=== PATIENT | male | born 1995 | race Caucasian/White ===

== ENCOUNTER 2019-08-13 20:54 | Emergency (ER) | payer SELFPAY ==
[2019-08-13 21:10] VITALS: BP 139/80
--- NOTE | 2019-08-13 21:18 | UC ---
Lower Extremity/Ankle HPI - HPI Summary HPI Summary: outside collector notes - RIGHT FOOT TODAY AT WORK FOOT SLIPPED OF A HAND CART FOOT RAIL. HEARD A SNAP. BASE OF FIRST DIGIT PAIN Pt was at work this morning, was working with a hand cart, foot slipped off the cart, with poor angle, heard a pop and felt pain in foot. Was able to ambulate to some degree (with pain), but pain not better. + swelling. No proximal pain. - History of Current Complaint Chief Complaint: UCLowerExtremity Stated Complaint: TOE INJURY Time Seen by Provider: 08/13/19 21:04 Hx Obtained From: Patient Pain Intensity: 3 - Allergies/Home Medications Allergies/Adverse Reactions: Allergies Allergy/AdvReac Type Severity Reaction Status Date / Time ibuprofen Allergy Intermediate KIDNEYS Verified 08/13/19 21:10 Home Medications: Home Medications NK [No Home Medications Reported] 08/13/19 [History Confirmed 08/13/19] PMH/Surg Hx/FS Hx/Imm Hx Previously Healthy: Yes - Surgical History Surgical History: None - Family History Known Family History: Positive: None - Social History Alcohol Use: Weekly Substance Use Type: Marijuana Smoking Status (MU): Light Every Day Tobacco Smoker Review of Systems All Other Systems Reviewed And Are Negative: Yes Constitutional: Positive: Negative Skin: Positive: Other - swelling Eyes: Positive: Negative ENT: Positive: Negative Respiratory: Positive: Negative Cardiovascular: Positive: Negative Gastrointestinal: Positive: Negative Genitourinary: Positive: Negative Motor: Positive: Other - see hpi Neurovascular: Positive: Negative Musculoskeletal: Positive: Arthralgia Neurological: Positive: Negative Psychological: Positive: Negative Is Patient Immunocompromised?: No Physical Exam Triage Information Reviewed: Yes Appearance: Well-Appearing, Well-Nourished Vital Signs: Initial Vital Signs Temp 98.7 F 08/13/19 21:06 Pulse 86 08/13/19 21:06 Resp 18 08/13/19 21:06 BP 139/80 08/13/19 21:06 Pulse Ox 98 08/13/19 21:06 Vital Signs Reviewed: Yes Eye Exam: Normal ENT Exam: Normal Neck exam: Normal Respiratory Exam: Normal Cardiovascular Exam: Normal Abdominal Exam: Normal Musculoskeletal Exam: Other - Tender base of 1st toe / distal 1st mt. + swelling. Cap refill is good Neurological Exam: Normal - distal nvi neuro grossly nonfocal Psychological Exam: Normal - conversing easily and appropriately Skin Exam: Normal - no visible or reported rash Lower Extremity Course/Dx - Course Course Of Treatment: Reviewed xrays with pt. Prelim - no fx. Pt is aware that formal radiological reading will be complete tomorrow. CAm boot today. Minimize pressure / walking. Foot sprain at the least. F/u orthopedics encouraged, referral placed. Questions as posed answered to the best of my ability. - Differential Dx/Diagnosis Provider Diagnosis: Foot sprain Discharge ED - Sign-Out/Discharge Documenting (check all that apply): Patient Departure All imaging exams completed and their final reports reviewed: No - Discharge Plan Condition: Stable Disposition: HOME Patient Education Materials: Foot Sprain (ED) Forms: *Work Release Referrals: Delon Gomez MD [Medical Doctor] - No Primary Care Phys,NOPCP [Primary Care Provider] - Additional Instructions: CAM boot for ambulation this week. Elevate leg frequently. Avoid prolonged standing / walking this week. Alleve as needed for pain, per packaging instructions. Please take alleve 2x / day for the next 3 days. Seek medical attention for worse or new problems. - Billing Disposition and Condition Condition: STABLE Disposition: Home
== END 2019-08-13 21:50 | disposition home or self-care (01) ==
LOC: UCEAST 20:54
DX: S93.601A Unspecified sprain of right foot, initial encounter (principal); X50.1XXA Overexertion from prolonged static or awkward postures, initial encounter; Y93.89 Activity, other specified; Y92.9 Unspecified place or not applicable; Y99.0 Civilian activity done for income or pay; Z88.6 Allergy status to analgesic agent; F17.200 Nicotine dependence, unspecified, uncomplicated
CPT/HCPCS: 99212; G0463